=== PATIENT | female | born 1935 | race African-American/Black ===

== ENCOUNTER 2024-02-13 10:17 | Inpatient (IN) | payer OTHER, MEDICAID, MEDICARE ==
[~2024-02-13] VITALS: Ht 152.4 cm; Wt 60.3 kg
[2024-02-13 10:52] LABS: HEMATOCRIT. 37.5 % (36.0-48.0); HEMOGLOBIN. 12.3 g/dL (12.0-16.0); MEAN CORPUSCULAR HEMOGLOBIN 31.9 pg (28.0-32.0); MEAN CORPUSCULAR HGB CONC 32.9 g/dL (31.0-37.0); MEAN PLATELET VOLUME 10.5 fl (7.4-10.4); PLATELET 129 x1000/uL (130-400); RED BLOOD CELL COUNT 3.86 mill/uL (4.2-5.4)
[2024-02-13 10:53] LABS: DIFFERENTIAL COMMENT 1
[2024-02-13 11:16] LABS: CHLORIDE 104 mEq/L (98-107); POTASSIUM 3.8 mEq/L (3.5-5.1); SODIUM 140 mEq/L (136-145)
[2024-02-13 11:17] LABS: CALCIUM 9.3 mg/dL (8.7-10.4); CARBON DIOXIDE 27 mEq/L (21-32)
[2024-02-13 11:22] LABS: CREATININE 0.8 mg/dL (0.6-1.0); GLUCOSE 121 mg/dL (70-105); UREA NITROGEN BLOOD 17 mg/dL (9-23)
[2024-02-13 11:23] LABS: TROPONIN I HIGH SENSITIVITY 7 ng/L (3.0-34)
[2024-02-13 12:09] LABS: INR 1.1; PROTHROMBIN TIME 11.8 sec (9.6-11.0)
[2024-02-13] MEDS: IOHEXOL-350 100 ML BOTTLE ONE (13:40)
[2024-02-13 15:21] LABS: PLATELET ESTIMATE NORMAL
[2024-02-13 20:00] VITALS: BP 102/60; PULSE 78; RESP 18; TEMP 98
[2024-02-13] MEDS: ACETAMINOPHEN 325MG TABLET PO NR (21:15)
[2024-02-13] MEDS ORDERED: PRED10TA MT (22:00)
[2024-02-13] MEDS ORDERED: TRAM50TA3 MT (22:00)
[2024-02-13] MEDS ORDERED: AMLO5TAB88 MT (22:00)
[2024-02-13 22:35] VITALS: BP 160/90; PULSE 80; RESP 18; TEMP 98.3
[2024-02-13 22:45] VITALS: BP 102/60; PULSE 78; RESP 18; TEMP 97.8
[2024-02-13] MEDS ORDERED: METF-414 MT (23:01)
[2024-02-13 23:39] VITALS: BP 161/76; PULSE 80; RESP 19; TEMP 97.3
[2024-02-14] MEDS ORDERED: CLONIDINE 0.1MG TABLET PO PRN (02:30)
[2024-02-14] MEDS ORDERED: MAGNESIUM/ALUMINUM HYDROXIDE/SIMETHICONE 30ML UDC PO PRN (02:30)
[2024-02-14] MEDS ORDERED: TRAMADOL 50MG TABLET PO PRN (02:30)
[2024-02-14] MEDS ORDERED: ONDANSETRON HCL 4MG/2ML INJ IV PRN (02:30)
[2024-02-14 04:00] VITALS: BP 152/103; PULSE 58; RESP 19; TEMP 97.6
[2024-02-14] MEDS: CEFTRIAXONE 1GM/50ML 50 ML IV SCH (04:15)
[2024-02-14 07:53] LABS: HEPATITIS B SURFACE ANTIGEN NEGATIVE (Negative)
[2024-02-14 08:00] VITALS: BP 145/90; PULSE 66; RESP 18; TEMP 98.4
[2024-02-14 08:14] LABS: HEPATITIS C AB NON REACTIVE (Neg) (Negative)
[2024-02-14] MEDS: METFORMIN HCL 500MG TABLET PO SCH (09:08)
[2024-02-14] MEDS: PREDNISONE 10MG TABLET PO SCH (09:08)
[2024-02-14] MEDS: OMEPRAZOLE 20MG CAPSULE EXTENDED RELEASE PO SCH (09:08)
[2024-02-14] MEDS: AMLODIPINE 5MG TABLET PO SCH (09:08)
[2024-02-14 12:00] VITALS: BP 129/61; PULSE 62; RESP 18; TEMP 100
[2024-02-14] MEDS ORDERED: METO100T16 MT (13:04)
[2024-02-14] MEDS ORDERED: CLON2TAB21 PO (13:06)
[2024-02-14] MEDS ORDERED: CLON2TAB21 MT (13:08)
[2024-02-14 13:11] LABS: CLARITY URINE CLEAR (CLEAR); COLOR URINE YELLOW (YELLOW); GLUCOSE URINE TRACE (NEGATIVE); KETONES URINE NEGATIVE (NEGATIVE); LEUKOCYTE ESTERASE URINE TRACE (NEGATIVE); NITRITE URINE NEGATIVE (NEGATIVE); OCCULT BLOOD URINE TRACE (NEGATIVE); PROTEIN URINE NEGATIVE (NEGATIVE); SPECIFIC GRAVITY URINE 1.005 (1.005-1.030); UROBILINOGEN URINE 0.2 E.U./dL (0.2-1.0)
[2024-02-14 13:54] LABS: SQUAMOUS EPITHELIAL CELL URINE RARE /lpf (RARE/1+)
[2024-02-14 13:55] LABS: BACTERIA URINE NONE SEEN; RBC URINE 0-2 /hpf (0-2)
[2024-02-14 14:19] LABS: *AMPHETAMINES SCREEN URINE NEGATIVE (NEGATIVE); *BARBITURATES SCREEN URINE NEGATIVE (NEGATIVE); *BENZODIAZEPINES SCREEN URINE NEGATIVE (NEGATIVE); *COCAINE SCREEN URINE NEGATIVE (NEGATIVE)
[2024-02-14 14:20] LABS: CANNABINOID URINE SCREEN NEGATIVE (NEGATIVE); ECSTASY MDMA SCREEN URINE NEGATIVE (NEGATIVE); METHADONE URINE SCREEN NEGATIVE (NEGATIVE); OPIATES URINE SCREEN NEGATIVE (NEGATIVE); PHENCYCLIDINE URINE SCREEN NEGATIVE (NEGATIVE)
[2024-02-14] MEDS ORDERED: HYDRALAZINE 20MG/ML VIAL IV PRN (15:15)
[2024-02-14] MEDS: ENOXAPARIN 40MG/0.4ML SYR SUBCUT SCH (15:37)
[2024-02-14 16:00] VITALS: BP 116/56; PULSE 68; RESP 18; TEMP 99
[2024-02-14 20:00] VITALS: BP 130/47; PULSE 73; RESP 20; TEMP 97.3
[2024-02-14] MEDS: ATORVASTATIN CALCIUM 40MG TABLET PO SCH (21:02)
[2024-02-14] MEDS: ZOLPIDEM TARTRATE 5MG TABLET PO PRN (21:03)
[2024-02-15] VITALS: BP 128/52; PULSE 75; RESP 19; TEMP 97.7
[2024-02-15 04:00] VITALS: BP 123/48; PULSE 72; RESP 20; TEMP 97.5
[2024-02-15 06:31] LABS: HEMATOCRIT. 36.5 % (36.0-48.0); HEMOGLOBIN. 12.3 g/dL (12.0-16.0); MEAN CORPUSCULAR HGB CONC 33.7 g/dL (31.0-37.0); MEAN CORPUSCULAR VOLUME 94.7 fL (81.0-99.0); MEAN PLATELET VOLUME 10.9 fl (7.4-10.4); PLATELET 125 x1000/uL (130-400); RED BLOOD CELL COUNT 3.85 mill/uL (4.2-5.4); RED CELL DISTRIBUTION WIDTH 13.9 % (11.6-14.6); WHITE BLOOD COUNT 3.9 x1000/uL (4.5-11.0)
[2024-02-15 06:39] LABS: CARBON DIOXIDE 28 mEq/L (21-32); CHLORIDE 102 mEq/L (98-107); POTASSIUM 3.3 mEq/L (3.5-5.1); SODIUM 139 mEq/L (136-145)
[2024-02-15 06:40] LABS: CALCIUM 9.2 mg/dL (8.7-10.4); TROPONIN I HIGH SENSITIVITY 9 ng/L (3.0-34)
[2024-02-15 06:42] LABS: DIFFERENTIAL COMMENT 1
[2024-02-15 06:44] LABS: CREATININE 0.6 mg/dL (0.6-1.0); GLUCOSE 103 mg/dL (70-105); T4 FREE 1.11 ng/dL (0.89-1.76); THYROID STIMULATING HORMONE 3.57 uIU/mL (0.55-4.78)
[2024-02-15 06:45] LABS: ALANINE AMINOTRANSFERASE 11 IU/L (10-49); LDL CHOLESTEROL 141 mg/dL (5-100); PROTEIN TOTAL 6.3 g/dL (6.0-8.3); TRIGLYCERIDE 146 mg/dL (0-150); UREA NITROGEN BLOOD 12 mg/dL (9-23)
[2024-02-15 06:46] LABS: ALBUMIN 4.2 g/dL (3.2-4.8); ASPARTATE AMINOTRANSFERASE 19 IU/L (<34); CHOLESTEROL 247 mg/dL (<200)
[2024-02-15 06:47] LABS: BILIRUBIN DIRECT 0.2 mg/dL (<=3.0); BILIRUBIN TOTAL 0.6 mg/dL (0.1-1.0); HDL CHOLESTEROL 83 mg/dL (>65); PHOSPHORUS 3.7 mg/dL (2.5-4.9)
[2024-02-15] MEDS: CLOPIDOGREL 75MG TABLET PO SCH (10:26)
[2024-02-15] MEDS: POTASSIUM CHLORIDE 20MEQ TABLET SR PO NR (10:27)
[2024-02-15] MEDS: ASPIRIN 81MG EC TABLET PO SCH (10:28)
[2024-02-15 12:01] VITALS: BP 158/79; PULSE 85; RESP 18; TEMP 98.9
[2024-02-15 12:23] VITALS: BP 161/99; PULSE 81; RESP 18; TEMP 96.9
[2024-02-15 12:30] LABS: PLATELET ESTIMATE SLIGHTLY DECREASED
[2024-02-15 16:00] VITALS: BP 105/59; PULSE 83; RESP 20; TEMP 98.9
[2024-02-15 20:45] VITALS: BP 138/53; PULSE 78; RESP 16; TEMP 97.5
[2024-02-15] MEDS ORDERED: NALOXONE HCL 0.4MG/ML VIAL IV PRN (20:45)
[2024-02-16] VITALS: BP 134/63; PULSE 72; RESP 19; TEMP 97.1
[2024-02-16 04:00] VITALS: BP 131/71; PULSE 75; RESP 19; TEMP 97.5
[2024-02-16 06:49] LABS: CHLORIDE 105 mEq/L (98-107); POTASSIUM 3.8 mEq/L (3.5-5.1); SODIUM 139 mEq/L (136-145)
[2024-02-16 06:51] LABS: CARBON DIOXIDE 25 mEq/L (21-32)
[2024-02-16 06:52] LABS: CALCIUM 9.6 mg/dL (8.7-10.4)
[2024-02-16 06:54] LABS: UREA NITROGEN BLOOD 11 mg/dL (9-23)
[2024-02-16 06:56] LABS: CREATININE 0.7 mg/dL (0.6-1.0); GLUCOSE 104 mg/dL (70-105)
[2024-02-16 06:57] LABS: ALANINE AMINOTRANSFERASE 9 IU/L (10-49)
[2024-02-16 06:58] LABS: ALBUMIN 4.5 g/dL (3.2-4.8); ASPARTATE AMINOTRANSFERASE 18 IU/L (<34)
[2024-02-16 06:59] LABS: BILIRUBIN DIRECT 0.2 mg/dL (<=3.0); BILIRUBIN TOTAL 0.7 mg/dL (0.1-1.0); PHOSPHORUS 3.4 mg/dL (2.5-4.9); PROTEIN TOTAL 6.7 g/dL (6.0-8.3)
[2024-02-16 07:36] LABS: HEMATOCRIT. 38.5 % (36.0-48.0); HEMOGLOBIN. 12.9 g/dL (12.0-16.0); MEAN CORPUSCULAR HEMOGLOBIN 31.9 pg (28.0-32.0); MEAN CORPUSCULAR HGB CONC 33.5 g/dL (31.0-37.0); MEAN CORPUSCULAR VOLUME 95.2 fL (81.0-99.0); MEAN PLATELET VOLUME 10.4 fl (7.4-10.4); PLATELET 129 x1000/uL (130-400); RED BLOOD CELL COUNT 4.04 mill/uL (4.2-5.4); RED CELL DISTRIBUTION WIDTH 13.8 % (11.6-14.6); WHITE BLOOD COUNT 4.1 x1000/uL (4.5-11.0)
[2024-02-16 07:56] LABS: DIFFERENTIAL COMMENT 1
[2024-02-16 08:00] VITALS: BP 140/53; PULSE 88; RESP 18; TEMP 97.7
[2024-02-16] MEDS ORDERED: CLOP-31 PO (08:56)
[2024-02-16] MEDS ORDERED: LIP40 PO (08:56)
[2024-02-16] MEDS ORDERED: ASPI-1406 PO (08:56)
[2024-02-16 12:00] VITALS: BP 146/59; PULSE 96; RESP 20; TEMP 97.8
[2024-02-16 15:50] VITALS: BP 146/59; PULSE 96; TEMP 98.2; O2SAT 99
[2024-02-16 16:00] VITALS: BP 136/67; PULSE 54; RESP 20; TEMP 98.1
[2024-02-16 16:27] LABS: PLATELET ESTIMATE SLIGHTLY DECREASED
== END 2024-02-16 16:55 | disposition home health service (06) | DRG 64 ==
LOC: ER 10:35 → EDBEDREQ 16:41 → EDBEDREQTM 16:41 → EDBEDREQ 16:42 → 7WST 22:56
PROVIDERS: ADMIT Family Medicine Adult Medicine; ATTEND Family Medicine Adult Medicine
DX: I63.9 Cerebral infarction, unspecified (principal); U07.1 COVID-19; I65.21 Occlusion and stenosis of right carotid artery; I10 Essential (primary) hypertension; E11.9 Type 2 diabetes mellitus without complications; E78.00 Pure hypercholesterolemia, unspecified
CPT/HCPCS: 36415; 70496; 70498; 70551; 71045; 80048; 80061; 80076; 80305; 81003; 82962; 83036; 83735; 84100; 84439; 84443; 84484; 85025; 86705; 87340; 87426; 92523; 93005; 93970; 97162; 97165; 99291; J0696; J1650; J7512; Q9967